=== PATIENT | male | born 1945 | race Caucasian/White ===

== ENCOUNTER 2021-08-03 16:24 | Emergency (ER) | payer OTHER ==
[~2021-08-03] VITALS: Ht 175.3 cm; Wt 69.5 kg
[~2021-08-03 16:24] MED LIST: ACET1TAB15 PO; CEPH2CAP PO; LOPR50TA PO; PRAV1TAB39 PO; TOFR10TA PO; XANA0.25 PO
[2021-08-03] MEDS ORDERED: LISI10TA22 (16:36)
[2021-08-03] MEDS ORDERED: IMIP25TA3 (16:36)
[2021-08-03] MEDS ORDERED: METO1TAB33 (16:36)
[2021-08-03] MEDS ORDERED: JARD1TAB (16:36)
[2021-08-03] MEDS ORDERED: PRAV80TA2 (16:36)
[2021-08-03] MEDS ORDERED: FINA5TAB2 (16:36)
[2021-08-03 17:16] LABS: BASO % 0.4 % (0.0-1.0); EOS # 0.1 10^3/uL (0.0-0.5); EOS % 0.8 % (0.0-3.0); HEMATOCRIT 47.2 % (42.0-52.0); HEMOGLOBIN 16.4 g/dl (13.5-17.5); LYMPH # 1.6 10^3/uL (1.5-5.0); LYMPH % 19.2 % (24.0-44.0); MEAN CORPUSCULAR HEMOGLOBIN 31.9 pg (27.0-33.0); MEAN CORPUSCULAR HGB CONC 34.7 g/dl (32.0-36.5); MEAN CORPUSCULAR VOLUME 91.8 fl (80.0-96.0); MONO # 0.6 10^3/uL (0.0-0.8); MONO % 7.6 % (2.0-8.0); NEUTROPHILS # 6.1 10^3/uL (1.5-8.5); NEUTROPHILS % 71.6 % (36.0-66.0); PLATELET COUNT, AUTOMATED 145 10^3/uL (150-450); RED BLOOD COUNT 5.14 10^6/uL (4.30-6.10); WHITE BLOOD COUNT 8.5 10^3/uL (4.0-10.0)
[2021-08-03] MEDS ORDERED: ISOVUE-370 76% 100ML VIAL As Ordered ONE (17:18)
[2021-08-03] MEDS ORDERED: ONDANSETRON 4MG/2ML VIAL IV ONE (17:35)
[2021-08-03 17:39] LABS: CK-MB VALUE MASS 1.9 NG/ML (<3.6); MB/CK RELATIVE INDEX 1.61 (< OR =4)
[2021-08-03 17:46] LABS: ALBUMIN 4.2 GM/DL (3.2-5.2); ALT/SGPT 38 U/L (12-78); BILIRUBIN,DIRECT 0.2 MG/DL (0.0-0.2); BILIRUBIN,TOTAL 0.9 MG/DL (0.2-1.0); BLOOD UREA NITROGEN 23 MG/DL (7-18); CALCIUM LEVEL 9.7 MG/DL (8.8-10.2); CARBON DIOXIDE LEVEL 20 MEQ/L (21-32); CHLORIDE LEVEL 106 MEQ/L (98-107); CREATININE FOR GFR 0.95 MG/DL (0.70-1.30); GLOMERULAR FILTRATION RATE > 60.0 (>42); GLUCOSE, FASTING 156 MG/DL (70-100); LIPASE 80 U/L (73-393); NT-PRO BNP 265 PG/ML (<450); POTASSIUM SERUM 3.6 MEQ/L (3.5-5.1); SODIUM LEVEL 139 MEQ/L (136-145); TOTAL PROTEIN 7.1 GM/DL (6.4-8.2)
[2021-08-03 18:29] LABS: CK-MB VALUE MASS 1.8 NG/ML (<3.6); MB/CK RELATIVE INDEX 1.62 (< OR =4)
[2021-08-03] MEDS ORDERED: PROMETHAZINE 25MG/ML 1ML VIAL IV ONE (18:40)
[2021-08-03] MEDS ORDERED: ONDA4TAB6 PO (19:59)
[2021-08-03] MEDS ORDERED: COLA100C5 PO (19:59)
[2021-08-03 20:46] VITALS: BP 110/65
== END 2021-08-03 20:30 | disposition home or self-care (01) ==
LOC: M ED 16:24
DX: K59.00 Constipation, unspecified (principal); K44.9 Diaphragmatic hernia without obstruction or gangrene; R94.31 Abnormal electrocardiogram [ECG] [EKG]; I10 Essential (primary) hypertension; F41.9 Anxiety disorder, unspecified; Z88.2 Allergy status to sulfonamides; Z88.8 Allergy status to other drugs, medicaments and biological substances
CPT/HCPCS: 71045; 74174; 80047; 80048; 80076; 82550; 82553; 83690; 83880; 84443; 84484; 85025; 93005; 93041; 94760; 96374; 96375; 99285; J2405; J2550; Q9967